=== PATIENT | female | born 2000 | race Caucasian/White ===

== ENCOUNTER 2022-09-28 19:34 | Emergency (ER) | payer BC, MEDICAID, SELFPAY ==
[2022-09-28 19:44] VITALS: BP 148/83; PULSE 97; RESP 18; TEMP 36.7; O2SAT 99
--- NOTE | 2022-09-28 20:03 | ED_ITS ---
HPI - Abdominal Pain General: Chief Complaint: Abdominal Pain Stated Complaint: possible kidney stone Time Seen by Provider: 09/28/22 19:55 History of Present Illness: Patient is a 22-year-old female comes to the ED with left flank pain. Patient has a history of kidney stones and says this feels like her past kidney stone. She said approximately a week and a half ago she started having increased urinary frequency. Denies any dysuria or hematuria. Approximately 3 days ago she started developing bladder pain and left flank pain. She rates her pain currently a 5 out of 10. Endorses having some nausea but denies any episodes of emesis. Denies any fevers. Last menstrual period was 3 weeks ago. Associated Symptoms: Reports nausea; Denies chills, constipation, diarrhea, dysuria, fever(s), hematochezia, hematuria and vomiting Review of Systems Const: Denies: fever(s), chills or fatigue Eyes: Denies: change in vision or eye discomfort ENMT: Denies: throat pain, odynophagia, nasal discharge or nasal congestion Card: Denies: chest pain, palpitations, edema, swelling of feet/ankles, dyspnea on exertion or orthopnea Resp: Denies: dyspnea, productive cough or non-productive cough GI: Reports: nausea; Denies: abdominal pain, vomiting, diarrhea, constipation or hematochezia : Reports: flank pain and urinary frequency (Increased urine frequency); Denies: dysuria or hematuria Musc: Denies: neck pain, back pain or extremity swelling Skin/Breast: Denies: rash or new lesions Neuro: Denies: headache(s), numbness in extremities or weakness in extremities [facility] ED PFSH: Medical History History of kidney stones No pertinent family history Physical Exam Const: COMMON NORMALS: no acute distress, patient oriented x3 and alert GENERAL APPEARANCE: cooperative HENMT: COMMON NORMALS: normocephalic HEAD & SCALP: normocephalic MOUTH: Normal oral and palatal mucosa present THROAT: posterior oropharynx normal and uvula midline Neck/C-Spine: COMMON NORMALS: supple GENERAL: Yes normal visual inspection Resp: COMMON NORMALS: normal respiratory effort, No retractions, No use of accessory muscles and clear to auscultation bilaterally AUSCULTATION: clear to auscultation bilaterally Cardio: COMMON NORMALS: regular rate, regular rhythm, S1 normal heart sound present, S2 normal heart sound present, No gallops present (Cardio), No clicks present (Cardio), No murmurs present (Cardio) and Peripheral pulses 2+ throughout RATE: regular rate RHYTHM: regular rhythm HEART SOUNDS: S1 normal heart sound present and S2 normal heart sound present PERIPHERAL PULSES: Peripheral pulses 2+ throughout GI: COMMON NORMALS: Normal to inspection, nondistended, normoactive bowel sounds present, Soft to palpation, non-tender and no masses PALPATION: Yes Soft to palpation and Yes Bladder palpation abnormal : BLADDER/KIDNEY EXAM: Yes Bladder palpation abnormal Bladder abnormal details: tender and Yes CVA tenderness on the left Back/Pelvis: GENERAL BACK: Yes CVA tenderness Extremity: COMMON NORMALS: normal to inspection Neuro: COMMON NORMALS: patient oriented x3 SENSORIUM/ORIENTATION: Yes alert GAIT: Yes Normal gait present Skin: GENERAL SKIN EXAM: dry skin Course Vital Signs: Vital signs: Vital Signs Temperature 98.1 F 09/28/22 19:44 Pulse Rate 97 09/28/22 19:44 Respiratory Rate 16 09/28/22 21:01 Blood Pressure 148/83 09/28/22 19:44 Pulse Oximetry 99 09/28/22 19:44 Oxygen Delivery Me thod Room Air 09/28/22 19:44 MDM - Abdominal Pain Medical Decision Making Patient is a 22-year-old female comes to the ED with left flank pain. Patient has a history of kidney stones and says this feels like her past kidney stone. She said approximately a week and a half ago she started having increased urinary frequency. Denies any dysuria or hematuria. Approximately 3 days ago she started developing bladder pain and left flank pain. She rates her pain currently a 5 out of 10. Endorses having some nausea but denies any episodes of emesis. Denies any fevers. Last menstrual period was 3 weeks ago. Vitals are stable. She has some bladder tenderness to palpation and some left CVA tenderness. Rest of exam is benign and patient appears nontoxic in no acute distress. CBC and CMP unremarkable. UA shows signs of UTI. CT of abdomen pelvis shows no acute findings or kidney stones noted. Patient diagnosed with UTI and was discharged home on antibiotic and ibuprofen 800 mg. Told to follow- up with her PCP in the next week for reevaluation. Return to ED precautions given. Patient understood agree with plan. Lab Data I reviewed the patient's lab results. 09/28/22 19:55 09/28/22 19:55 Labs/Radiology: Radiology Impressions Abdomen/Pelvis CT 09/28/22 20:53 IMPRESSION: 1. Hepatomegaly 2. No urinary tract calculi are demonstrated. Laboratory Results WBC 11.9 10^3/uL (4.0-10.0) H 09/28/22 19:55 RBC 4.68 10^6/uL (4.1-5.3) 09/28/22 19:55 Hgb 13.3 g/dL (11.5-15.3) 09/28/22 19:55 Hct 40.4 % (37.0-47.0) 09/28/22 19:55 MCV 86.3 fl (81-99) 09/28/22 19:55 MCH 28.4 pg (28.0-34.0) 09/28/22 19:55 MCHC 32.9 g/dL (30.0-36.0) 09/28/22 19:55 RDW 12.8 % (12.1-15.1) 09/28/22 19:55 Plt Count 242 10^3/cmm (130-400) 09/28/22 19:55 MPV 10.9 fL (7.4-10.4) H 09/28/22 19:55 Neut % (Auto) 63.1 % 09/28/22 19:55 Lymph % (Auto) 17.9 % 09/28/22 19:55 [place] % (Auto) 11.5 % 09/28/22 19:55 Eos % (Auto) 6.6 % 09/28/22 19:55 Baso % (Auto) 0.3 % 09/28/22 19:55 Neut # (Auto) 7.49 10^3/uL (1.8-7.7) 09/28/22 19:55 Lymph # (Auto) 2.1 10^3/uL (0.8-4.8) 09/28/22 19:55 [place] # (Auto) 1.4 10^3/uL (0.2-0.9) H 09/28/22 19:55 Eos # (Auto) 0.8 10^3/uL (0.0-0.8) 09/28/22 19:55 Baso # (Auto) 0.0 10^3/uL (0.0-0.1) 09/28/22 19:55 Nucleated RBC % (auto) 0 % 09/28/22 19:55 Nucleated RBCs # 0.0 /100WBC 09/28/22 19:55 Sodium 135 mmol/L (136-145) L 09/28/22 19:55 Potassium 3.6 mmol/L (3.5-5.1) 09/28/22 19:55 Chloride 96 mmol/L (98-107) L 09/28/22 19:55 Carbon Dioxide 27 mmol/L (22-29) 09/28/22 19:55 Anion Gap 15.6 (5-19) 09/28/22 19:55 BUN 5 mg/dL (6-20) L 09/28/22 19:55 Creatinine 0.6 mg/dL (0.5-0.9) 09/28/22 19:55 GFR Calculation 122.8 mL/min (90-130) 09/28/22 19:55 Glucose 79 mg/dL (65-115) 09/28/22 19:55 Calculated Osmolality 276 mOsm/kg (285-295) L 09/28/22 19:55 Calcium 8.7 mg/dL (8.5-10.5) 09/28/22 19:55 Total Bilirubin 0.2 mg/dL (0.15-1.2) 09/28/22 19:55 AST 15 U/L (0-32) 09/28/22 19:55 ALT 16 U/L (0-33) 09/28/22 19:55 Alkaline Phosphatase 74 U/L (35-105) 09/28/22 19:55 Total Protein 7.6 g/dL (6.6-8.7) 09/28/22 19:55 Albumin 4.0 g/dL (3.5-5.2) 09/28/22 19:55 Globulin 3.6 g/dL (1.3-4.6) 09/28/22 19:55 Lipase 22 U/L (13-60) 09/28/22 19:55 HCG, Qual Negative (Negative) 09/28/22 19:55 Urine Color Yellow (Yellow) 09/28/22 20:34 Urine Appearance Clear (CLEAR) 09/28/22 20:34 Urine pH 6.5 (5-7) 09/28/22 20:34 Ur Specific [place] 1.005 (1.005-1.030) 09/28/22 20:34 Urine Protein Trace (Negative) 09/28/22 20:34 Urine Glucose (UA) Norm (Normal) 09/28/22 20:34 Urine Ketones Negative (Negative) 09/28/22 20:34 Urine Blood 3+ (Negative) H 09/28/22 20:34 Urine Nitrate Negative (Negative) 09/28/22 20:34 Urine Bilirubin Neg (Negative) 09/28/22 20:34 Urine Urobilinogen Norm mg/dL (Negative) 09/28/22 20:34 Ur Leukocyte Esterase Trace (Negative) H 09/28/22 20:34 Urine RBC 0-4 /hpf (0-2) H 09/28/22 20:34 Urine WBC 15-25 /hpf (0-5) H 09/28/22 20:34 Ur Squamous Epith Cells 0-4 /hpf (0-5) H 09/28/22 20:34 Amorphous Sediment Not Reportable 09/28/22 20:34 Urine Bacteria 2+ /hpf (NONE) H 09/28/22 20:34 Urine Mucus Trace /hpf 09/28/22 20:34 Discharge Plan Discharge Patient Disposition: Home Clinical Impression: UTI (urinary tract infection) Qualifiers: Urinary tract infection type: acute cystitis Hematuria presence: with hematuria Qualified Code(s): N30.01 - Acute cystitis with hematuria Condition: Stable Prescriptions: New Bactrim DS 800-160 mg tablet 1 tab PO BID 7 Days Qty: 14 0RF ibuprofen 800 mg tablet 800 mg PO Q8H PRN (Reason: pain) Qty: 20 0RF Discharge Orders: Discharge ED (Routine); Ordered 09/28/22 Ordered By: Ming Ramey Discharge Diet: Regular Discharge Activity: Increase activity as tolerated Patient Instructions: Urinary Tract Infection in Women (DC) Activity Restrictions/Additional Instructions: Follow-up with medical provider as directed in the next 5 to 7 days for reevaluation. Take medications as prescribed. Return to the ER or your medical provider if condition worsens. Please read and understand discharge instructions. Thank you for choosing [facility] for your healthcare needs today. Please realize this is an emergency room and that we are providing you with a medical screening exam and this may not be complete and all inclusive of all the testing and or work up that you may need to determine your ailment or severity of your illness. It is very important that you follow up as instructed or that you return to the Emergency Department should you have concerns or if your condition changes or worsens in any way. Coding Level of Care Code ED Machine Woodworking Sander for Doreen Sanford
[2022-09-28 20:14] LABS: Basophils % 0.3 %; Eosinophils # 0.8 10^3/uL (0.0-0.8); Eosinophils % 6.6 %; Hematocrit 40.4 % (37.0-47.0); Hemoglobin 13.3 g/dL (11.5-15.3); Lymphocytes # 2.1 10^3/uL (0.8-4.8); Lymphocytes % 17.9 %; Mean Corpuscular HGB Conc 32.9 g/dL (30.0-36.0); Mean Corpuscular Hemoglobin 28.4 pg (28.0-34.0); Mean Corpuscular Volume 86.3 fl (81-99); Mean Platelet Volume 10.9 fL (7.4-10.4); Monocytes # 1.4 10^3/uL (0.2-0.9); Monocytes % 11.5 %; Neutrophils # 7.49 10^3/uL (1.8-7.7); Neutrophils % 63.1 %; Nucleated Red Blood Cells % 0 %; Platelet Count 242 10^3/cmm (130-400); Red Blood Count 4.68 10^6/uL (4.1-5.3); Red Cell Distribution Width 12.8 % (12.1-15.1); White Blood Count 11.9 10^3/uL (4.0-10.0)
[2022-09-28 20:32] LABS: Alanine Aminotransferase 16 U/L (0-33); Alkaline Phosphatase 74 U/L (35-105); Anion Gap 15.6 (5-19); Aspartate Amino Transferase 15 U/L (0-32); Blood Urea Nitrogen 5 mg/dL (6-20); Calcium 8.7 mg/dL (8.5-10.5); Carbon Dioxide 27 mmol/L (22-29); Chloride 96 mmol/L (98-107); Globulin 3.6 g/dL (1.3-4.6); Glomerular Filtration Rate 122.8 mL/min (90-130); Glucose 79 mg/dL (65-115); Lipase 22 U/L (13-60); Osmolality Calculated 276 mOsm/kg (285-295); Potassium 3.6 mmol/L (3.5-5.1); Sodium 135 mmol/L (136-145); Total Bilirubin 0.2 mg/dL (0.15-1.2); Total Protein 7.6 g/dL (6.6-8.7)
[2022-09-28 20:41] LABS: HCG, Serum Qual Negative (Negative)
[2022-09-28 20:50] LABS: Specific Gravity, Urine 1.005 (1.005-1.030); Urine Appearance Clear (CLEAR); Urine Color Yellow (Yellow); pH Urine 6.5 (5-7)
[2022-09-28 20:51] LABS: Add Urine Culture? Yes; Add Urine Microscopic? YES; Bacteria Urine 2+ /hpf; Bilirubin Urine Neg (Negative); Blood Urine 3+ (Negative); Glucose Urine UA Norm (Normal); Ketones Urine Negative (Negative); Leukocyte Esterase Urine Trace (Negative); Mucus Urine TRACE /hpf; Nitrate Urine Negative (Negative); Protein Urine Trace (Negative); RBC Urine 0-4 /hpf (0-2); Squamous Epithelial Cell Urine 0-4 /hpf (0-5); Urobilinogen Urine Norm (Negative); WBC Urine 15-25 /hpf (0-5)
--- NOTE | 2022-09-28 20:53 | CTR_ITS ---
PROCEDURE INFORMATION: Exam: CT Abdomen And Pelvis Without Contrast Exam date and time: 09/28/2022 9:04 PM Age: 22 years old Clinical indication: Abdominal pain; Localized; Prior surgery; Surgery type: Gb; Patient HX: C/O left flank pain with hematuria. TECHNIQUE: Imaging protocol: Computed tomography of the abdomen and pelvis without contrast. Radiation optimization: All CT scans at this facility use at least one of these dose optimization techniques: automated exposure control; mA and/or kV adjustment per patient size (includes targeted exams where dose is matched to clinical indication); or iterative reconstruction. REPORTING DATA: Count of CT and Cardiac NM exams in prior 12 months: This patient has received 0 known CTs and 0 known cardiac nuclear medicine studies in the 12 months prior to the current study. COMPARISON: No relevant prior studies available. RADIATION DOSE METRICS: Total DLP (mGy-cm): 1098.01 FINDINGS: Limitations: The absence of intravenous contrast lessens the sensitivity of this study for solid organ abnormalities. Lungs: Lung bases are clear. Liver: There is no focal abnormality within the liver. There is moderate enlargement of the liver. Liver is 22 cm in height Gallbladder and bile ducts: There has been a cholecystectomy. Pancreas: The pancreas is normal. Spleen: The spleen is normal. Adrenal glands: The adrenal glands are normal. Kidneys and ureters: The kidneys are normal. There is no evidence of hydronephrosis. There is no evidence of renal or ureteral calcifications. Stomach and bowel: There is no evidence of colitis/diverticulitis. There is no evidence of intestinal obstruction. Appendix: A normal appendix is identified. Intraperitoneal space: Unremarkable. No free air. No significant fluid collection. Vasculature: The aorta is normal. Lymph nodes: There is no evidence of lymphadenopathy. Urinary bladder: Unremarkable as visualized. Reproductive: Unremarkable as visualized. Bones/joints: Unremarkable. No acute fracture. Soft tissues: Unremarkable. CT/CT kidney stone [id number] IMPRESSION: 1. Hepatomegaly 2. No urinary tract calculi are demonstrated.
[2022-09-28 21:01] VITALS: RESP 16
[2022-09-28] MEDS: morphine 4 mg/mL SDV 1 mL IM (21:01)
--- NOTE | 2022-10-05 14:16 | DCPLANNER ---
export sales manager called patient due to no primary care physician - no answer at this time.
== END 2022-09-28 22:06 | disposition home or self-care (01) ==
PROVIDERS: Emergency Medicine; Emergency Provider Physician Assistant
DX: N30.01 Acute cystitis with hematuria (principal); Z87.442 Personal history of urinary calculi
CPT/HCPCS: 74176; 80053; 81001; 83690; 84703; 85025; 87077; 87086; 87186; 96372; 99285; J2270

== ENCOUNTER 2022-10-05 19:35 | Emergency (ER) | payer BC, MEDICAID, SELFPAY ==
--- NOTE | 2022-10-05 19:36 | XRR_ITS ---
PROCEDURE INFORMATION: Exam: XR Left Hand Exam date and time: 10/05/2022 7:47 PM Age: 22 years old Clinical indication: Injury or trauma; Other: Hit lt hand; Blunt trauma (contusions or hematomas); Left TECHNIQUE: Imaging protocol: Radiologic exam of the left hand. Views: 3 or more views. COMPARISON: No relevant prior studies available. FINDINGS: Bones/joints: Three views submitted. No line there is a transverse fracture through the distal 3rd of 5th metacarpal diaphysis with slight displacement and minimal apex posterior angulation. No dislocation. Soft tissues: Mild regional soft tissue swelling. XR/XR hand LT min 3V* [id number] IMPRESSION: Fifth metacarpal fracture as described.
[2022-10-05 19:58] VITALS: BP 150/97; PULSE 78; RESP 16; TEMP 36.6; O2SAT 99
--- NOTE | 2022-10-05 20:02 | ED_ITS ---
HPI - Extremity Problem General: Chief complaint: Extremity Injury, Upper Stated complaint: left hand injury Time Seen by Provider: 10/05/22 20:02 PFSH ED PFSH: Medical History History of kidney stones No pertinent family history Course Vital Signs: Vital signs: Vital Signs Temperature 97.8 F 10/05/22 19:58 Pulse Rate 78 10/05/22 19:58 Respiratory Rate 16 10/05/22 19:58 Blood Pressure 150/97 10/05/22 19:58 Pulse Oximetry 99 10/05/22 19:58 Oxygen Delivery Me thod Room Air 10/05/22 19:58 Discharge Plan Discharge Condition: Stable Prescriptions: No Action ibuprofen 800 mg tablet 800 mg PO Q8H PRN (Reason: pain) Qty: 20 0RF Coding Level of Care Code ED Senior Software Engineering Manager for Doreen Sanford
--- NOTE | 2022-10-05 20:05 | ED_ITS ---
HPI - Extremity Problem General: Chief complaint: Extremity Injury, Upper Stated complaint: left hand injury Time Seen by Provider: 10/05/22 20:02 Source: patient Mode of arrival: ambulatory Limitations: no limitations History of Present Illness: 20-year-old female states she had a fall just prior arrival as a ground-level fall just prior to arrival. Patient states she landed on her left hand and has had left hand pain since then. States pain sharp in nature she believes she fractured her hand she denies any wrist or elbow pain denies hitting her head denies other injuries denies any neck pain. States pain is much worse with movement or palpation. Associated symptoms: Deny chest pain or rash Review of Systems ENMT: Denies: throat pain or dental pain Card: Denies: chest pain Resp: Denies: dyspnea GI: Denies: abdominal pain Musc: Reports: extremity pain; Denies: neck pain or back pain Skin/Breast: Denies: rash Neuro: Denies: headache(s) Psych: Denies: depression Migel/Lymph: Denies: easy bruising All/Imm: Denies: urticaria PFSH ED PFSH: Medical History History of kidney stones No pertinent family history Physical Exam Const: COMMON NORMALS: no acute distress and patient oriented x3 HENMT: COMMON NORMALS: atraumatic HEAD & SCALP: atraumatic Eye: COMMON NORMALS: conjunctivae normal CONJUNCTIVA: Yes conjunctivae normal Neck/C-Spine: COMMON NORMALS: full ROM and supple Chest: COMMONS NORMALS: normal inspection of the chest Resp: COMMON NORMALS: normal respiratory effort Cardio: COMMON NORMALS: regular rate RATE: regular rate Extremity: OTHER: Tenderness over left hand over fifth metatarsal no wrist tenderness no elbow tenderness Neuro: COMMON NORMALS: patient oriented x3 Psych: COMMON NORMALS: mental status grossly normal Skin: COMMON NORMALS: no rashes or lesions noted GENERAL SKIN EXAM: no rashes or lesions noted Course Vital Signs: Vital signs: Vital Signs Temperature 97.8 F 10/05/22 19:58 Pulse Rate 78 10/05/22 19:58 Respiratory Rate 16 10/05/22 19:58 Blood Pressure 150/97 10/05/22 19:58 Pulse Oximetry 99 10/05/22 19:58 Oxygen Delivery Me thod Room Air 10/05/22 19:58 MDM - Extremity (Nontraumatic) Medical Decision Making Patient presents here with a fracture of her left hand fifth metatarsal from a fall she has no other injuries noted we will place her ulnar gutter we will get her follow-up with orthopedics she is to return if worsening. Discharge Plan Discharge Patient Disposition: Home Clinical Impression: Fracture of hand Qualifiers: Encounter type: initial encounter Fracture type: closed Laterality: left Qualified Code(s): S62.92XA - Unspecified fracture of left wrist and hand, initial encounter for closed fracture Condition: Stable Prescriptions: New hydrocodone-acetaminophen 5-325 mg tablet 1 tab PO Q6H PRN (Reason: pain) Qty: 14 0RF No Action ibuprofen 800 mg tablet 800 mg PO Q8H PRN (Reason: pain) Qty: 20 0RF Discharge Orders: Discharge ED (Routine); Ordered 10/05/22 Ordered By: Padilla Silva Referrals: Jairo Ramey DO [Physician] - 1-3 days Discharge Diet: Advance as tolerated Discharge Activity: Resume usual activity Patient Instructions: Hand Fracture (ED) Coding Level of Care Code ED Organisation And Methods Analyst for Doreen Sanford
[2022-10-05] MEDS: naproxen 500 mg Tablet PO (20:24)
--- NOTE | 2022-10-06 08:44 | DCPLANNER ---
Addendum entered by Keri Uriarte 10/15/22 09:47: Patient had a follow up appointment scheduled with ortho - patient did attend appointment. Addendum entered by Keri Uriarte 10/08/22 07:52: Patient has a follow up appointment scheduled for September at 1:[address] Ramey at ortho. Original Note: keno manager had message to schedule a follow up appointment for patient with ortho. keno manager sent patients information to the front office staff at ortho. Patients information will be printed and reviewed. Clinic will call patient with appointment information.
--- NOTE | 2022-10-08 13:16 | DCPLANNER ---
recycling manager called patient due to no primary care physician - no answer at this time.
== END 2022-10-05 20:36 | disposition home or self-care (01) ==
PROVIDERS: Emergency Provider Emergency Medicine
DX: S92.355A Nondisplaced fracture of fifth metatarsal bone, left foot, initial encounter for closed fracture (principal); W17.89XA Other fall from one level to another, initial encounter
CPT/HCPCS: 73130; 99283

== ENCOUNTER → 2022-10-14 13:43 | Outpatient (BNVA) | payer BC, MEDICAID, SELFPAY | PROVIDERS: Referring Provider Emergency Medicine; Visit Provider Student in an Organized Health Care Education/Training Program | DX: W10.8XXA Fall (on) (from) other stairs and steps, initial encounter (principal); S62.307A Unspecified fracture of fifth metacarpal bone, left hand, initial encounter for closed fracture | CPT/HCPCS: 73130 ==

== ENCOUNTER 2022-10-19 07:38 | Day surgery (SDC) | payer BC, MEDICAID, SELFPAY ==
[2022-10-18 12:33] VITALS: BMI 40.7
[2022-10-19] VITALS (7 sets, daily range): BP systolic 123–156; BP diastolic 66–96; PULSE 70–86; RESP 15–18; TEMP 36.1–36.7; O2SAT 97–99
--- NOTE | 2022-10-19 | XR_ITS ---
WS: [id number] XR hand LT min 3V* [id number] REASON FOR EXAM: SURGICAL PROCEDURE. FINDINGS: Placement of longitudinal screw through the fifth metacarpal with fixation of the transverse fracture in the mid fifth metacarpal. Surgical appliances intact and properly positioned. Fracture fragments and proper alignment. XR/XR hand LT min 3V* [id number] IMPRESSION: Fixation of fifth metacarpal fracture as above.
[2022-10-19 07:56] LABS: OR HCG Qualitative Urine Negative (Negative)
[2022-10-19] MEDS: acetaminophen 1,000 MG/100 ML PIGGYBACK 400 MG IV (08:05)
--- NOTE | 2022-10-19 08:08 | ANES.PREANE2 ---
Pre-Anesthetic Assessment Height/Weight: Height 1.6 m Weight 104.326 kg Temp Pulse Resp BP Pulse Ox O2 Del Method 97.8 F 86 16 153/82 99 Room Air 10/19/22 07:52 10/19/22 07:52 10/19/22 07:52 10/19/22 07:52 10/19/22 07:52 10/19/22 07:52 Preop Diagnosis: Left fifth metacarpal shaft fracture Operation Date: 10/19/22 08:45 Proposed Procedures p ORIF left 5th metacarpal/ 67704 S62.307A(Left) - Jairo Morrill, Familial anesthetic complications: None Was Beta Fernando taken within 24 hours: N/A Was Clonidine taken within 24 hours: N/A Last intake: Intake Last Liquid Date 10/18/22 Last Liquid Time 19:00 Last Solid Date 10/18/22 Last Solid Time 19:00 Social Tobacco and No alcohol Exam alert, oriented x 3, clear to auscultation bilaterally and regular rate & rhythm Airway Mallampati: Class III Dentition: chipped Metabolic Morbid Obesity Anesthetic Plan ASA status: 2 Anesthesia: MAC Risk of > 500 ml blood loss (7ml/kg in children): No Medications/Allergies Home Medications Medication Instructions Recorded Confirmed Last Taken Type ibuprofen 800 mg tablet 800 mg PO Q8H PRN pain #20 tabs 09/28/22 10/19/22 10/15/22 Rx Allergies Allergy/AdvReac Type Severity Reaction Status Date / Time No Known Allergies Allergy Verified 10/19/22 07:47 PFSH Anesthesia Medical History History of kidney stones No pertinent family history Female Reproductive History Date of last menstrual period: 09/27/22 Data Anesthesia Cardiac Studies: No Data to Display
[2022-10-19] MEDS: sodium chloride 0.9% 1,000 ML 30 ML IV (08:11)
[2022-10-19] MEDS: ketorolac 30 mg/mL INJ IVP (08:11)
--- NOTE | 2022-10-19 08:11 | W.PM.OPSUD ---
Surgery/Procedure H&P Update DATE OF PROCEDURE: October 19, 2022 DATE H&P PERFORMED: 10/14/22 CHANGES TO PREVIOUS DOCUMENTATION: None. Patient understands risk benefits complication alternatives of surgery and agrees to proceed with surgical intervention. Plan for left fifth metacarpal shaft fracture open reduction internal fixation with headless compression screw. PREOP DIAGNOSIS: Left fifth metacarpal shaft fracture PRIMARY INDICATION FOR PROCEDURE: Left fifth metacarpal shaft fracture, angulated PLANNED PROCEDURE: Operation Date: 10/19/22 08:45 Proposed Procedures p ORIF left 5th metacarpal/ 88998 S62.307A(Left) - Jairo Ramey DO
[2022-10-19] MEDS: scopolamine 1.5 Patch 1 PATCH TRANSDERMA (08:29)
[2022-10-19] MEDS: ceFAZolin 2,000 MG in sodium chloride 0.9% (plus) 50 ML 100 MG IV (09:14)
--- NOTE | 2022-10-19 10:06 | P.OP_ITS ---
Brief Operative Note Date of procedure: 10/19/22 Pre-op diagnosis: Left fifth metacarpal shaft fracture Post-op diagnosis: same Procedure Done: Left fifth metacarpal shaft fracture open reduction internal fixation Surgeon: Jairo Ramey Estimated blood loss (mL): 2 Complications: None Post-op Plan: Patient taken to PACU in stable condition recovering well. Pain controlled. Fingertips warm well perfused. Patient receive appropriate discharge instruction as well as pain medication postoperatively. Should be nonweig htbearing to the left hand. Splint on in place. Keep splint clean dry and intact. We will follow-up with me in the office in 2 weeks. Condition: stable Disposition: same day Coding Level of Care Code Acute Code for Doreen Sanford
--- NOTE | 2022-10-19 10:07 | P.OP_ITS ---
Operative Report Date of procedure: October 19, 2022 Pre-op diagnosis: Preop Diagnosis Left fifth metacarpal shaft fracture Procedure: ? Procedure: Post-op diagnosis: Same Procedure done: Left fifth metacarpal shaft fracture open reduction internal fixation with intramedullary headless compression screw Implants: Arthrex 2.5 mm fully threaded headless compression screw x 42mm Surgeon: Jairo Ramey DO Estimated blood loss: 2 mL Tourniquet: 13 minutes IV fluids: See anesthesia record Complications: None Condition: stable Disposition: same day Brief History: Patient's been seen and worked up in the outpatient setting found to have a left fifth metacarpal fracture.? Young and active.? Patient has a noticeable deformity with on x-ray with significant angulation.? Patient has decreased range of motion.? Patient has subtle malrotation as well as additional angulation of over 45 degrees on a midshaft metacarpal fracture. We did talk about his treatment options as far as nonoperative and operative intervention.? We talked about the risks benefits complication alternatives to surgical and nonsurgical treatment options.? Ultimately benefits for pt with surgery would be restorationist of anatomic alignment of fifth metacarpal fracture given significant volar angulation outside of acceptable criteria as well as ultimately hopes for earlier range of motion compared to nonoperative cast treatment.? Ultimately through shared decision making understanding patient ris ks with surgery patient elects to proceed with surgical intervention.? All questions have been answered at this time.? We will proceed with left fifth metacarpal fracture open reduction internal fixation with intramedullary screw fixation.? All questions answered. Procedure: Patient was seen and evaluated in the preoperative holding area.? Consent was reviewed and signed with patient.? Correct extremity marked.? Seen evaluated by anesthesia once cleared for surgery patient was then subsequently taken back to the operative suite.? Transported onto the OR table in supine position all bony prominences well-padded patient was appropriately secured to the bed.? Patient's left arm was then placed to an armboard.? Nonsterile tourniquet applied to the left upper arm.? Once appropriately anesthetized the left upper extremity was then prepped and draped in standard orthopedic fashion.? Final timeout performed.? Patient received appropriate preoperative antibiotics. Esmarch tourniquet was used to exsanguinate the left upper extremity and tourniquet was insufflated to 250 mmHg this point time I brought in a sterilely prepped and draped mini C arm to evaluate patient's fracture.? Again persistent significant volar angulation was appreciated on examination I then performed a manipulation of the fifth metacarpal fracture to obtain reduction.? This was then confirmed to be in acceptable alignment after manual manipulation on mini C arm and multiple orthogonal images.? Once I was satisfied with this placement I then loaded Arthrex is guidepin and percutaneously placed this in center position on the metacarpal head and advanced this across the fracture site.? I then took multiple orthogonal images to confirm appropriate placement.? The wire was in center position on the AP and then on the dorsal third of the head in appropriate position on the metacarpal shaft.? Preoperatively canal was measured to accommodate for 2.5 mm intramedullary screw.? Once satisfied with my guidepin placement I then advanced this into the base of the fifth metacarpal so my wire would not move while placing the cannulated drill bit.? Measured to be a 42 mm.? I then subsequently made a small stab incision longitudinally directly over the guidepin and then placed my cannulated drill bit over the guidewire and an oscillating fashion breaking the cortex and then drilling out the distal aspect of the fracture site to the canal in preparation for fully threaded headless compression screw.? Next I then selected a 2.5 mm x 42 mm screw placed this on a hemostat and took an x-ray of this held over the fracture this looked and appeared to be in appropriate length as this would capture distal to the this medicine would have appropriate length above and below the fracture site.? With once again of 2.5 mm appear to be appropriate.? I then subsequently loaded a 2.5 mm x 42 mm screw slid this over the guidepin and then by hand while maintaining again my reduction as well as holding to correct rotation while advancing the screw advance the screw to appropriate depth below the articular margin and subchondral bone.? While advancing the screw patient's canal was tight and the screw had significant purchase. Once advancing in and under patient's compression there did have an additional fracture at the transverse site making this more of a comminuted fracture. As the compression of the screw cause this. I was able to advance the screw and had excellent fixation both distally as well as proximally and still maintained appropriate length this did shorten the metacarpal only roughly 2 mm which is well within acceptable parameters. Patient's angulation was corrected to normal. At this point time I was satisfied with my screw fixation. this had excellent purchase fixation as well as compression across my fracture site and maintained my reduction.? I then once satisfied with appropriate advancement of the intramedullary screw remove the guidepin atraumatically.? I then took the fingers through range of motion and cascade there is no malrotation appreciated.? No tethering of the extensor tendon was noted.? Fingers had smooth tenodesis with no evidence of malrotation.? Final x-rays were taken in multiple orthogonal images AP oblique and lateral which showed reduction of the fifth metacarpal? fracture and appropriate placement and screw in appropriate placement and not intra-esteban cular.? Fracture site was stressed and stable. The site was then thoroughly irrigated.? I then injected local anesthetic for postoperative pain control.? Incision was then closed with a simple interrupted nylon stitch Xeroform 4 x 4's Kerlix and an ulnar gutter accommodating for motion of the MP was then applied patient was then awakened from anesthesia and taken to PACU in stable condition.? Patient tolerated procedure without complications. Disposition: Patient taken PACU in stable condition recovering well.? Splint on in place clean dry and intact.? We will see appropriate discharge instructions as well as pain medication postoperatively we will follow-up with me in the office in 2 weeks.? Patient understands if any questions or concerns and contact the office.? All questions answered.
--- NOTE | 2022-10-19 10:07 | PM.PACU ---
PACU note Narrative: Patient taken to PACU in stable condition recovering well. Patient did receive local has some decreased sensation of the small finger. She is able to wiggle fingers. Fingertips warm well-perfused brisk capillary refill less than 2 seconds. Splint on in place limits examination. Exam: awake Disposition: discharged
--- NOTE | 2022-10-19 14:00 | ANE.PACU2 ---
Inpatient post-anesthesia follow up: Airway intact: Yes Vital signs: Temperature 98.1 F Pulse Rate 77 Respiratory Rate 16 Blood Pressure 151/80 Pulse Oximetry 98 Oxygen Delivery Me thod Room Air Oxygen Flow Rate Fraction of Inspir ed Oxygen Hydration adequate: Yes Nausea and vomiting: No Pain level: 1 Mental status: Baseline
== END 2022-10-19 10:50 | disposition home or self-care (01) ==
PROVIDERS: Visit Provider Student in an Organized Health Care Education/Training Program
PROC: (CPT 26615; principal; 2022-10-19 08:35)
DX: S62.327A Displaced fracture of shaft of fifth metacarpal bone, left hand, initial encounter for closed fracture (principal); E66.01 Morbid (severe) obesity due to excess calories; Z68.41 Body mass index [BMI] 40.0-44.9, adult; W10.9XXA Fall (on) (from) unspecified stairs and steps, initial encounter
CPT/HCPCS: 26605; 73130; 76000; 81025; 84703; C1713; J0131; J0690; J1885; J2250; J2704; J2795; J3010; J3490; J7030

== ENCOUNTER → 2022-11-02 09:26 | Outpatient (BNVA) | payer BC, MEDICAID, SELFPAY | PROVIDERS: Visit Provider Nurse Practitioner Family | DX: Z98.890 Other specified postprocedural states (principal); S62.307D Unspecified fracture of fifth metacarpal bone, left hand, subsequent encounter for fracture with routine healing; X58.XXXD Exposure to other specified factors, subsequent encounter | CPT/HCPCS: 73130 ==

== ENCOUNTER 2022-11-02 14:11 | Outpatient (CLI) | payer BC, MEDICAID, SELFPAY | END 2022-11-02 14:12 | disposition home or self-care (01) | LOC: SPT 14:13 | PROVIDERS: Visit Provider Nurse Practitioner Family | DX: Z46.89 Encounter for fitting and adjustment of other specified devices (principal); S62.337D Displaced fracture of neck of fifth metacarpal bone, left hand, subsequent encounter for fracture with routine healing; X58.XXXD Exposure to other specified factors, subsequent encounter; Z98.890 Other specified postprocedural states | CPT/HCPCS: 97760; L3908 ==